=== PATIENT | male | born 1955 | race Caucasian/White ===

== ENCOUNTER 2019-12-05 22:49 | Emergency (ER) | payer OTHER ==
[~2019-12-05] VITALS: Ht 190.5 cm; Wt 106.0 kg
--- NOTE | 2019-12-05 23:05 | NUR ---
leo velarde with c/o palpitations, stated he has a defibrillator and felt a thump x2 last night and again today 3x's. monitors applied, siderails up x2, call light within reach
[2019-12-05 23:19] LABS: BASOPHILS # (AUTO) 0.05 x10^3/uL (0-0.1); BASOPHILS % (AUTO) 1 % (0-1); EOSINOPHILS # (AUTO) 0.05 x10^3/uL (0-0.4); EOSINOPHILS % (AUTO) 1 % (1-7); LYMPHOCYTES # (AUTO) 1.19 x10^3/uL (1-3.4); LYMPHOCYTES % (AUTO) 17 % (22-44); MD NO; MEAN CORPUSCULAR HEMOGLOBIN 29.1 pg (27.5-34.5); MEAN CORPUSCULAR HGB CONC 33.3 g/dL (33.2-36.2); MEAN CORPUSCULAR VOLUME 87.5 fL (81-97); MEAN PLATELET VOLUME 7.8 fL (7.4-10.4); MONOCYTES # (AUTO) 0.54 x10^3/uL (0.2-0.8); MONOCYTES % (AUTO) 8 % (2-9); NEUTROPHILS # (AUTO) 5.19 x10^3/uL (1.8-6.8); NEUTROPHILS % (AUTO) 74 % (42-75); PLATELET COUNT 235 x10^3/uL (130-400); RED BLOOD COUNT 4.83 x10^6/uL (4.38-5.82); RED CELL DISTRIBUTION WIDTH 14.7 % (9.4-14.8)
[2019-12-05 23:31] LABS: ANION GAP 7 mmol/L (5-15); CALCIUM 8.8 mg/dL (8.5-10.1); CHLORIDE 106 mmol/L (98-107); CREATININE 1.31 mg/dL (0.7-1.3)
--- NOTE | 2019-12-05 23:38 | NUR ---
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 pt had no needs other than repositioning. call light given to pt.
[2019-12-06] MEDS ORDERED: AMIODARONE 150 MG in DEXTROSE 5% 100 ML IV ONE (00:30)
[2019-12-06] MEDS ORDERED: FILTER 0.22 MICRON IV ONE (00:30)
[2019-12-06] MEDS ORDERED: CARV3.1212 PO (00:33)
[2019-12-06] MEDS ORDERED: ASPI-515 PO (00:33)
[2019-12-06] MEDS ORDERED: RIVA10TA2 PO (00:34)
[2019-12-06] MEDS ORDERED: [UNRECOGNIZED DRUG - REMARK] (00:46)
--- NOTE | 2019-12-06 00:47 | NUR ---
Patient to go to [place] where care will be supervised by Dr. Hartman. [facility] called for transport. ETA [id number]
[2019-12-06 00:58] VITALS: BP 106/79
== END 2019-12-06 01:44 | disposition home or self-care (01) ==
LOC: ED 23:59
DX: I47.2 Ventricular tachycardia (principal); R06.02 Shortness of breath; Z95.0 Presence of cardiac pacemaker
CPT/HCPCS: 36415; 71045; 80048; 83735; 85025; 93005; 96365; 99284; J0282